=== PATIENT | male | born 1985 | race Caucasian/White ===

== ENCOUNTER 2024-01-11 23:45 | Emergency (ER) | payer MEDICARE, MEDICAID ==
[~2024-01-11] VITALS: Ht 182.9 cm; Wt 73.0 kg
[2024-01-12 00:04] VITALS: BP 125/88; O2SAT 100
[2024-01-12] MEDS ORDERED: CYCL10TA21 MT (01:49)
[2024-01-12] MEDS ORDERED: IBUP-2029 MT (01:49)
[2024-01-12 02:07] VITALS: PULSE 52; RESP 16; TEMP 36.89184; O2SAT 100
== END 2024-01-12 02:09 | disposition home or self-care (01) ==
LOC: ER 23:45
DX: S43.102A Unspecified dislocation of left acromioclavicular joint, initial encounter (principal); W01.0XXA Fall on same level from slipping, tripping and stumbling without subsequent striking against object, initial encounter; Y93.89 Activity, other specified; Y92.89 Other specified places as the place of occurrence of the external cause; Y99.8 Other external cause status
CPT/HCPCS: 73030; 99283; A4565